=== PATIENT | male | born 1970 | race Caucasian/White ===

== ENCOUNTER 2023-05-04 06:25 | Emergency (ER) | payer MEDICARE, MEDICAID ==
[2023-05-04] MEDS ORDERED: Albuterol/Ipratropium 3.0-0.5 MG/3 ML Neb Soln NEB ONE (06:54)
[2023-05-04] MEDS ORDERED: methylPREDNISolone Sodium Succinate 125 MG/2 ML SDV IVPUSH ONE (06:54)
[2023-05-04] MEDS ORDERED: Ondansetron 4 MG/2 ML SDV IVPUSH ONE (07:16)
[2023-05-04] MEDS ORDERED: Sodium Chloride 0.9% 1,000 ML IV SCH (07:30)
[2023-05-04 07:32] LABS: BASOPHILS PERCENT AUTO 0.1 % (0.3-3.8); EOSINOPHILS ABSOLUTE AUTO 0.2 x10-3/uL (0.0-0.6); EOSINOPHILS PERCENT AUTO 1.4 % (0.1-6.8); HEMATOCRIT 46.6 % (38.3-50.1); HEMOGLOBIN 15.7 g/dL (12.9-17.7); LYMPHOCYTES ABSOLUTE AUTO 1.5 x10-3/uL (0.5-4.5); LYMPHOCYTES PERCENT AUTO 12.1 % (15.8-45.3); MEAN CORPUSCULAR HEMOGLOBIN 30.3 pg (27.0-33.3); MEAN CORPUSCULAR HGB CONC 33.8 g/dL (28.7-35.3); MEAN CORPUSCULAR VOLUME 89.8 fL (80.8-98.7); MEAN PLATELET VOLUME 7.9 fL (6.7-11.0); MONOCYTES ABSOLUTE AUTO 0.8 x10-3/uL (0.0-1.2); MONOCYTES PERCENT AUTO 6.6 % (5.5-15.2); NEUTROPHILS ABSOLUTE AUTO 9.9 x10-3/uL (1.7-6.9); NEUTROPHILS PERCENT AUTO 79.8 % (40.3-71.8); PLATELET COUNT,PLT 281 x10(3)uL (117-477); RED BLOOD CELL COUNT 5.19 x10(6)uL (3.90-5.90); RED CELL DISTRIBUTION WIDTH 13.7 % (12.4-15.0); WHITE BLOOD CELL COUNT,WBC 12.5 x10-3/uL (3.2-10.1)
[2023-05-04 07:38] LABS: BLOOD UREA NITROGEN,BUN 10 mg/dL (7-18); CALCIUM 9.2 mg/dL (8.6-10.2); CARBON DIOXIDE,CO2 28 mmol/L (21-32); CHLORIDE,CL 103 mmol/L (100-110); EST CRCL DRUG DOSING (CG) 74.84 mL/min; ESTIMATED GFR 92 mL/min (>60); GLUCOSE RANDOM 105 mg/dL (80-116); SODIUM,NA 138 mmol/L (135-145)
== END 2023-05-04 08:32 | disposition home or self-care (01) ==
LOC: FB.ED 06:25
DX: J44.1 Chronic obstructive pulmonary disease with (acute) exacerbation (principal); K52.9 Noninfective gastroenteritis and colitis, unspecified; Z91.041 Radiographic dye allergy status; Z88.8 Allergy status to other drugs, medicaments and biological substances; Z72.0 Tobacco use
CPT/HCPCS: 36415; 71045; 80048; 85025; 93005; 96361; 96374; 96375; 99285; J2405; J2930; J7030; J7620

== ENCOUNTER 2023-05-07 16:13 | Emergency (ER) | payer MEDICARE, MEDICAID ==
[2023-05-07] MEDS ORDERED: Sodium Chloride 0.9% 10 ML Syringe FLUSH PRN (16:24)
[2023-05-07] MEDS ORDERED: Albuterol/Ipratropium 3.0-0.5 MG/3 ML Neb Soln NEB ONE (16:25)
[2023-05-07] MEDS ORDERED: methylPREDNISolone Sodium Succinate 125 MG/2 ML SDV IVPUSH ONE (16:25)
[2023-05-07 16:53] LABS: HEMOGLOBIN 15.6 g/dL (12.9-17.7); MEAN CORPUSCULAR HEMOGLOBIN 30.4 pg (27.0-33.3); MEAN CORPUSCULAR VOLUME 89.6 fL (80.8-98.7); PLATELET COUNT,PLT 307 x10(3)uL (117-477); RED BLOOD CELL COUNT 5.14 x10(6)uL (3.90-5.90); RED CELL DISTRIBUTION WIDTH 14.1 % (12.4-15.0); WHITE BLOOD CELL COUNT,WBC 12.2 x10-3/uL (3.2-10.1)
[2023-05-07] MEDS ORDERED: Sodium Chloride 0.9% 1,000 ML IV ONE (16:53)
[2023-05-07 16:54] LABS: BLOOD UREA NITROGEN,BUN 13 mg/dL (7-18); CALCIUM 9.7 mg/dL (8.6-10.2); CARBON DIOXIDE,CO2 26 mmol/L (21-32); CHLORIDE,CL 104 mmol/L (100-110); EST CRCL DRUG DOSING (CG) 74.84 mL/min; ESTIMATED GFR 92 mL/min (>60); GLUCOSE RANDOM 130 mg/dL (80-116); POTASSIUM,K 4.3 mmol/L (3.5-5.3); SODIUM,NA 140 mmol/L (135-145)
[2023-05-07 17:00] LABS: A/G RATIO 1.1; ALANINE AMINOTRANSFERASE,ALT 31 U/L (12-36); ALBUMIN 3.9 g/dL (3.5-5.2); ALKALINE PHOSPHATASE 56 IU/L (56-112); ASPARTATE AMNIOTRANSFERASE,AST 25 IU/L (5-25); BILIRUBIN TOTAL 0.4 mg/dL (0.1-1.3); PROTEIN TOTAL,TP 7.4 g/dL (6.0-8.0)
[2023-05-07 17:03] LABS: LACTIC ACID 1.9 mmol/L (0.4-2.0)
[2023-05-07 17:25] LABS: BAND PERCENT MAN 1 % (0-6); LYMPHOCYTES PERCENT MAN 6 % (13-37); MONOCYTES PERCENT MAN 1 % (4-12); SEG NEUTROPHILS PERCENT MAN 92 % (46-82)
== END 2023-05-07 18:14 | disposition home or self-care (01) ==
LOC: FB.ED 16:13
DX: J44.1 Chronic obstructive pulmonary disease with (acute) exacerbation (principal); Z20.822 Contact with and (suspected) exposure to COVID-19; Z91.041 Radiographic dye allergy status; Z88.8 Allergy status to other drugs, medicaments and biological substances; Z79.899 Other long term (current) drug therapy
CPT/HCPCS: 36415; 71045; 80053; 83605; 85025; 96361; 96374; 99283; 99285-25; J2930; J3490; J7030; J7620; U0002

== ENCOUNTER 2023-11-08 10:05 | Emergency (ER) | payer MEDICARE, MEDICAID ==
[2023-11-08] MEDS: Ketorolac 30 MG/ML SDV IM ONE (10:35)
[2023-11-08] MEDS: tiZANidine 4 MG Tab PO STA (10:36)
== END 2023-11-08 11:52 | disposition home or self-care (01) ==
LOC: FB.ED 10:05
DX: S39.012A Strain of muscle, fascia and tendon of lower back, initial encounter (principal); J44.9 Chronic obstructive pulmonary disease, unspecified; Z91.041 Radiographic dye allergy status; Z88.8 Allergy status to other drugs, medicaments and biological substances; Z79.899 Other long term (current) drug therapy
CPT/HCPCS: 72100; 96372; 99283; A9270; J1885

== ENCOUNTER 2023-12-22 04:11 | Emergency (ER) | payer MEDICARE, MEDICAID ==
[2023-12-22] MEDS ORDERED: Azithromycin 250 MG Tab PO ONE (04:12)
[2023-12-22] MEDS ORDERED: predniSONE 20 MG Tab PO ONE (04:12)
[2023-12-22] MEDS ORDERED: Albuterol/Ipratropium 3.0-0.5 MG/3 ML Neb Soln INH ONE (04:12)
[2023-12-22] MEDS: Albuterol/Ipratropium 3.0-0.5 MG/3 ML Neb Soln NEB ONE (04:37)
[2023-12-22 05:16] LABS: INFLUENZA A NAA POSITIVE (NEGATIVE); INFLUENZA B NAA NEGATIVE (NEGATIVE); RESPIRATORY SYNCYTIAL VIR NAA NEGATIVE (NEGATIVE)
[2023-12-22 05:17] LABS: CORONAVIRUS COVID-19 NAA NEGATIVE (NEGATIVE)
== END 2023-12-22 05:51 | disposition home or self-care (01) ==
LOC: FB.ED 04:11
DX: J10.1 Influenza due to other identified influenza virus with other respiratory manifestations (principal); J44.1 Chronic obstructive pulmonary disease with (acute) exacerbation; Z79.899 Other long term (current) drug therapy; Z88.8 Allergy status to other drugs, medicaments and biological substances; Z91.013 Allergy to seafood; Z91.041 Radiographic dye allergy status
CPT/HCPCS: 0241U; 99284; 99285; A9270-GY; J7512; J7620

== ENCOUNTER 2023-12-27 20:04 | Emergency (ER) | payer MEDICARE, MEDICAID ==
[2023-12-27] MEDS ORDERED: Sodium Chloride 0.9% 10 ML Syringe FLUSH PRN (20:18)
[2023-12-27 20:28] LABS: BASOPHILS ABSOLUTE AUTO 0.1 x10-3/uL (0.0-0.3); BASOPHILS PERCENT AUTO 0.5 % (0.3-3.8); EOSINOPHILS ABSOLUTE AUTO 0.4 x10-3/uL (0.0-0.6); EOSINOPHILS PERCENT AUTO 3.3 % (0.1-6.8); HEMATOCRIT 46.4 % (38.3-50.1); HEMOGLOBIN 15.7 g/dL (12.9-17.7); LYMPHOCYTES ABSOLUTE AUTO 5.3 x10-3/uL (0.5-4.5); LYMPHOCYTES PERCENT AUTO 39.1 % (15.8-45.3); MEAN CORPUSCULAR HEMOGLOBIN 30.9 pg (27.0-33.3); MEAN CORPUSCULAR HGB CONC 33.8 g/dL (28.7-35.3); MEAN CORPUSCULAR VOLUME 91.3 fL (80.8-98.7); MEAN PLATELET VOLUME 7.8 fL (6.7-11.0); MONOCYTES ABSOLUTE AUTO 0.7 x10-3/uL (0.0-1.2); MONOCYTES PERCENT AUTO 5.3 % (5.5-15.2); NEUTROPHILS PERCENT AUTO 51.8 % (40.3-71.8); PLATELET COUNT,PLT 301 x10(3)uL (117-477); RED BLOOD CELL COUNT 5.09 x10(6)uL (3.90-5.90); RED CELL DISTRIBUTION WIDTH 14.3 % (12.4-15.0); WHITE BLOOD CELL COUNT,WBC 13.4 x10-3/uL (3.2-10.1)
[2023-12-27 20:31] LABS: BLOOD UREA NITROGEN,BUN 19 mg/dL (7-18); BUN/CREATININE RATIO 21.1 (9-20); CALCIUM 9.2 mg/dL (8.6-10.2); CARBON DIOXIDE,CO2 30 mmol/L (21-32); CHLORIDE,CL 103 mmol/L (100-110); CREATININE 0.9 mg/dL (0.70-1.30); ESTIMATED GFR 103 mL/min (>60); GLUCOSE RANDOM 104 mg/dL (80-116); POTASSIUM,K 3.7 mmol/L (3.5-5.3); SODIUM,NA 140 mmol/L (135-145)
[2023-12-27 20:37] LABS: A/G RATIO 0.9; ALANINE AMINOTRANSFERASE,ALT 28 U/L (12-36); ALBUMIN 3.4 g/dL (3.5-5.2); ALKALINE PHOSPHATASE 49 IU/L (56-112); BILIRUBIN TOTAL 0.2 mg/dL (0.1-1.3)
[2023-12-27 20:38] LABS: ASPARTATE AMNIOTRANSFERASE,AST < 5 IU/L (5-25); INR 0.89 (1.00-1.24); PROTHROMBIN TIME 9.4 sec (9.0-11.1); PTT,PARTIAL THROMBOPLSTIN TIME 24.2 SECONDS (24.4-33.2)
[2023-12-27 20:45] LABS: PRO B-TYPE NATRIUR PEPT,BNPPRO 42 pg/mL (<=125)
[2023-12-27 20:49] LABS: TROPONIN I < 4.0 pg/mL (4.0-60.3)
[2023-12-27] MEDS: Nitroglycerin 0.4 MG Tab.SL SL PRN (20:59)
[2023-12-27] MEDS ORDERED: Sodium Chloride 0.9% 1,000 ML IV SCH (21:00)
[2023-12-27] MEDS: Morphine 4 MG/ML VIAL IVPUSH ONE (22:18)
[2023-12-27] MEDS: methylPREDNISolone Sodium Succinate 125 MG/2 ML SDV IVPUSH ONE (22:26)
[2023-12-27] MEDS: Ketorolac 30 MG/ML SDV IVPUSH ONE (22:26)
== END 2023-12-27 22:35 | disposition home or self-care (01) ==
LOC: FB.ED 20:04
DX: I25.10 Atherosclerotic heart disease of native coronary artery without angina pectoris (principal); J44.9 Chronic obstructive pulmonary disease, unspecified; I25.2 Old myocardial infarction; F17.210 Nicotine dependence, cigarettes, uncomplicated; Z79.899 Other long term (current) drug therapy; Z91.041 Radiographic dye allergy status; Z91.013 Allergy to seafood; Z88.8 Allergy status to other drugs, medicaments and biological substances
CPT/HCPCS: 36415; 71045; 80053; 83880; 84484; 85025; 85610; 85730; 93005; 93010; 96374; 96375; 99284; 99285-25; A9270-GY; J1885; J2930

== ENCOUNTER 2024-04-19 16:02 | Emergency (ER) | payer MEDICARE, MEDICAID | END 2024-04-19 16:45 | disposition home or self-care (01) | LOC: FB.ED 16:02 | DX: L55.1 Sunburn of second degree (principal); I25.10 Atherosclerotic heart disease of native coronary artery without angina pectoris; I25.2 Old myocardial infarction; F17.200 Nicotine dependence, unspecified, uncomplicated; Z91.041 Radiographic dye allergy status; Z91.013 Allergy to seafood; Z88.8 Allergy status to other drugs, medicaments and biological substances; Z79.51 Long term (current) use of inhaled steroids | CPT/HCPCS: 99282 ==

== ENCOUNTER 2024-07-14 07:50 | Day surgery (SDC) | payer MEDICARE, MEDICAID ==
[~2024-07-14 07:50] MED LIST: Sodium Chloride 0.9% 10 ML Syringe FLUSH PRN
[2024-07-14] MEDS ORDERED: Lidocaine 1% 5 ML VIAL INJECT ONE (07:51)
[2024-07-14] MEDS ORDERED: Propofol 200 MG/20 ML SDV IV ONE (07:51)
[2024-07-14] MEDS: Lactated Ringers 1,000 ML IV SCH (08:43)
[2024-07-14] MEDS: Simethicone Drops 40 MG/0.6 ML 30 ML Bottle ONE (09:04)
== END 2024-07-14 10:40 | disposition home or self-care (01) ==
LOC: FB.SDS 07:50
PROVIDERS: ATTEND Surgery
DX: D12.6 Benign neoplasm of colon, unspecified (principal); K57.31 Diverticulosis of large intestine without perforation or abscess with bleeding; J44.9 Chronic obstructive pulmonary disease, unspecified; F17.210 Nicotine dependence, cigarettes, uncomplicated; Z79.899 Other long term (current) drug therapy; Z91.041 Radiographic dye allergy status; Z91.013 Allergy to seafood
CPT/HCPCS: 00811; 45381; 45385; 88305; A9270; J2704; J7120

== ENCOUNTER 2025-01-21 08:01 | Emergency (ER) | payer MEDICARE, MEDICAID ==
[2025-01-21] MEDS: Ketorolac 30 MG/ML SDV IM ONE (08:52)
== END 2025-01-21 09:08 | disposition home or self-care (01) ==
LOC: FB.ED 08:01
DX: M51.360 Other intervertebral disc degeneration, lumbar region with discogenic back pain only (principal); M54.40 Lumbago with sciatica, unspecified side; I25.2 Old myocardial infarction; I25.10 Atherosclerotic heart disease of native coronary artery without angina pectoris; Z86.73 Personal history of transient ischemic attack (TIA), and cerebral infarction without residual deficits; F17.200 Nicotine dependence, unspecified, uncomplicated; Z91.041 Radiographic dye allergy status; Z91.013 Allergy to seafood; Z88.8 Allergy status to other drugs, medicaments and biological substances; Z79.51 Long term (current) use of inhaled steroids; Z79.899 Other long term (current) drug therapy
CPT/HCPCS: 96372; 99283; 99284; J1885